=== PATIENT | female | born 1965 | race Caucasian/White ===

== ENCOUNTER 2017-04-13 20:41 | Emergency (ER) | payer MEDICARE, MEDICAID ==
[~2017-04-13] VITALS: Ht 162.6 cm; Wt 65.1 kg
[~2017-04-13 20:41] MED LIST: DEP500A PO; OLAN10TA3 PO
[2017-04-13 20:47] VITALS: PULSE 71; RESP 26; O2SAT 96
--- NOTE | 2017-04-13 21:02 | ED.REPORT ---
HPI-Abd Pain F 40 and Over Date of Service Apr 13, 2017 ED Provider: Dr. Chu 51 y/o female with a hx of anxiety, bipolar disorder, seizure disorder and Hep C presents to the ED from [facility] complaining of abdominal pain for the last week. Associated sx include dysuria, urinary frequency, urinary retention and constipation. The pt reports mild relief from constipation after taking milk of magnesia. She denies abnormal vaginal discharge, fever, and flank pain. She states she has had UTIs "but not like this". The pt initially reports concern about STDs but later states "they did a blood test and said I don't have any STD." The pt appears anxious and is a tangential historian. She states "I have not taken my Klonopin since 2001." She stopped taking olanzapine because it gave her akathisia. She also states "I stopped taking benztropine because it dehydrates me and I feel like I'm choking." She last used meth 2 months ago. Nursing Notes Stated Complaint: ABDOMINAL PAIN Chief Complaint: Female Abdominal Pain Nursing Notes Reviewed: Yes Allergies: Coded Allergies: haloperidol (Verified Allergy, Severe, Extrapyramidal Symptoms, 04/13/17) "Mouth seizure and lockjaw" Scheduled Divalproex DR (Depakote DR) 500 Mg Tabec 500 MG PO BID Swallowed whole without chewing to avoid local irritation of the mouth and throat. Lactulose (Lactulose) 20 Gm/30 Ml Solution 20 GM PO TID Olanzapine (Zyprexa) 10 Mg Tablet 10 MG PO HS Scheduled PRN Clonazepam (Clonazepam) 1 Mg Tablet 1 MG PO HS PRN PRN For Anxiety General Time Seen by MD: 21:02 Chief Complaint Abdominal pain Hx Obtained From: Patient Arrived By: Walk-in Sudden in Onset?: No Onset Occurred: 1 week ago Symptom Duration: Since onset Location: : Abdomen lower Quality: Painful Radiation: : Does not radiate Severity: Current: Moderate Severity: Maximum: Moderate Recent Healthcare: No recent doctor visit Similar Sx Previous: No Past Medical History Past Medical History - Seizure disorder - Hepatitis C - Psychosis unspecified - Bipolar disorder - Anxiety Past Surgical History Reports: Hysterectomy Smoking History Current Every Day Smoker Social History Drug Use: Meth, THC Ambulatory Status Independent Review of Systems Reports: urinary retention Constitutional: Denies: Fever GI: Reports: Abdominal pain, Constipation Female: Reports: Dysuria, Urinary frequency, Denies: Flank pain, Vaginal bleeding - abnl Complete sys rev & neg: except as marked. Physical Exam Vital Signs Vital Signs (First) Date Time Temp Pulse Resp B/P Pulse Ox O2 Delivery O2 Flow Rate FiO2 04/13/17 20:47 36.2 71 26 96 Room Air 04/13/17 21:38 134/83 Initial VS: Reviewed Head / Eyes: Atraumatic, Normocephalic, PERRL ENT: Mucous membranes moist, Conjunctiva normal, No scleral icterus Neck: Supple, Non-tender, Full range of motion Extremities: Vascular intact, Neuro intact, No swelling, No tenderness Skin: Warm, Dry, No cyanosis Neurologic: Alert, Oriented, Nonfocal General/Constitutional: Awake, Alert, Cooperative Behavior: Positive: Anxious The pt was initially constantly moving, tangential and had pressured speech. After Klonopin administration, she had significantly calmed down and was able to converse normally. Respiratory / Chest: Atraumatic, Breath sounds NL, Breath sounds = bilat, No respiratory distress, No rales, No rhonchi, No wheezing Cardiovascular: Heart rate NL, Regular rhythm, Heart sounds NL, No gallop, No murmurs, No rubs Abdomen: Atraumatic, Soft, Non-tender, No guarding, No rebound Back: Atraumatic, Full range of motion Psychiatric: Not suicidal, Not homicidal Manic Interpretation & Diagnostics Lab Results Interpretation Result Diagram: 04/13/17214704/13/[id number] Test 04/13/17 21:37 04/13/17 21:48 Urine Color Straw (YELLOW) Urine Appearance Clear (CLEAR,HAZY) Urine pH 5.5 (5.0-8.0) Urine Specific [place] 1.005 (1.003-1.035) Urine Protein Negativemg/dL (NEG,TRACE) Urine Glucose (UA) Negativemg/dL (NEGATIVE) Urine Ketones Negativemg/dL (NEGATIVE) Urine Occult Blood Negative (NEGATIVE) Urine Nitrite Negative (NEGATIVE) Urine Bilirubin Negative (NEGATIVE) Urine Urobilinogen Normalmg/dL (NORMAL) Urine Leukocyte Esterase Negative (NEGATIVE) Urine RBC 0-2/hpf (0-2) Urine WBC 0-5/hpf (0-5) Urine Epithelial Cells Occasional/hpf (NONE-MOD) Urine Crystals None seen (NONE SEEN) Urine Bacteria None/hpf (NONE-FEW) Urine Hyaline Casts None/lpf (NONE) Urine Granular Casts None seen (NONE SEEN) Urine Waxy Casts None seen (NONE SEEN) Urine Red Blood Cell Casts None seen (NONE SEEN) Urine White Blood Cell Casts None seen (NONE SEEN) Urine Mucus None seen (None Seen) Urine Trichomonas None seen (NONE SEEN) Urine Yeast None (NONE SEEN) Urinalysis Comment None Urine Culture Reflexed Not indicated White Blood Count 6.9th/mm3 (3.8-10.1) Red Blood Count 4.64mil/mm3 (3.90-5.20) Hemoglobin 13.7g/dL (12.0-15.6) Hematocrit 39.5% (35.0-46.0) Mean Corpuscular Volume 85.1fL (81-100) Mean Corpuscular Hemoglobin 29.5pg (27.0-35.0) Mean Corpuscular Hemoglobin Concent 34.7% (32.0-37.0) Red Cell Distribution Width 12.7% (12.3-15.4) Platelet Count 225bil/L (150-400) Neutrophils (%) (Auto) 53.0% (40-74) Lymphocytes (%) (Auto) 35.7% (14-46) Monocytes (%) (Auto) 9.2% (4-12) Eosinophils (%) (Auto) 1.2% (0-5) Basophils (%) (Auto) 0.6% (0-3) Sodium Level 133mEq/L (134-144) Potassium Level 3.8mEq/L (3.5-5.2) Chloride Level 94mEq/L (97-108) Carbon Dioxide Level 22mmol/L (18-29) Blood Urea Nitrogen 12mg/dL (6-24) Creatinine 0.89mg/dL (0.57-1.00) Estimat Glomerular Filtration Rate 96mL/min (>59) Glucose Level 94mg/dL (60-99) Calcium Level 10.1mg/dL (8.5-10.1) Total Bilirubin 0.3mg/dL (0.0-1.2) Aspartate Amino Transf (AST/SGOT) 18U/L (0-50) Alanine Aminotransferase (ALT/SGPT) 17U/L (0-32) Alkaline Phosphatase 49U/L (25-150) Total Protein 7.7g/dL (6.4-8.4) Albumin 4.3g/dL (3.4-5.0) Lipase 25U/L (13-60) CT Abd / Pelvis Interpretation Conclusion: Moderate to large amount of colonic stool. Signed by Dr. Trista Michel 04/13/17 23:13 Interpretation / Wet Read by: Interpret - Radiologist Re-Eval/Medical Decision Med Decision/Clinical Course 51-year-old with abdominal discomfort sent from [place] for evaluation. Her abdominal evaluation is pacing negative except for severe constipation. She is initially very anxious and hyperkinetic, but improved dramatically with Klonopin, and is now able converse normally aligned the bed. Her exam remains benign. CT just shows constipation. Begun with lactulose to clear out. Klonopin and at bedtime, ten total written and no renewal. Follow up with PCP. She requested and we declined to alter her psych medicines at present except for the application of Klonopin temporarily. Discharged in stable and improved condition. Source of Hx: Old records Re-Evaluation/Progress #1: Time of Eval: 01:25 Re-Evaluation/Progress Note: Rechecked pt. Discussed lab results, imaging results, diagnosis and plan to discharge. Pt understands and agrees with the plan. F/U instruction and RTER warning given. All questions addressed. Re-Evaluation/Progress #2: Time of Eval: 01:32 Re-Evaluation/Progress Note: [facility]. They have a bed for the pt. Counseled Regarding: Diagnosis, Lab results, Need for follow-up, When/why to return to ED Discharge & Departure Primary Impression: Abdominal Pain Generalized Additional Impressions: Anxiety Constipation Constipation type: unspecified constipation type Qualified Code: K59.00 - Constipation, unspecified Bipolar affective disorder Active/Remission status: remission status unspecified Qualified Code: F31.9 - Bipolar disorder, unspecified Disposition: Home Discharge Condition All VS Reviewed: Yes Patient Instructions: Constipation (ED), Generalized Anxiety Disorder (ED) Additional Instructions: Continue your current medications. We will add clonazepam at night to reduce your anxiety and your extrapyramidal movements. Contact your doctor to make any changes in her basic regimen. As you see, all of your extra movements have resolved with the clonazepam, suggesting they were more related to anxiety than to medicine side effects. Began lactulose 1 tablespoon three times daily until you have at least three bowel movements a day for two days. You can then stop the lactulose. Return here for any immediate issues. Referrals: Vidhi Bravo MD (Family) Scribe Attestation Portions of this note were transcribed by Robert Keys. I,, personally performed the history, physical exam and medical decision-making;I reviewed and confirmed the accuracy of the information in the transcribed note. Signed by Donovan Etienne. 04/13/17 21:48 copies to: Vidhi Bravo MD, Christopher W MD Apr 13, 2017 21:02 Robert Keys Apr 13, 2017 21:20
[2017-04-13] MEDS ORDERED: Iohexol 300 mg/mL 30 mL Inj PO ONE (21:20)
[2017-04-13 21:38] VITALS: BP 134/83
[2017-04-13 21:52] LABS: BASOPHILS % (AUTO) 0.6 % (0-3); EOSINOPHILS % (AUTO) 1.2 % (0-5); MONOCYTES % (AUTO) 9.2 % (4-12); Mean Corpuscular Hemoglobin 29.5 pg (27.0-35.0); Mean Corpuscular Volume 85.1 fL (81-100); Platelet Count 225 bil/L (150-400)
[2017-04-13 21:53] LABS: APPEARANCE,URINE CLEAR (CLEAR,HAZY); COLOR,URINE STRAW (YELLOW); OCCULT BLOOD,URINE NEGATIVE (NEGATIVE); PH,URINE 5.5 (5.0-8.0); UROBILINOGEN,URINE NORMAL (NORMAL)
[2017-04-14 00:30] VITALS: BP 104/86; PULSE 61; RESP 12; O2SAT 98
[2017-04-14] MEDS ORDERED: Lactulose 20 Gm/30 mL 30 mL Syrup PO ONE (01:35)
[2017-04-14] MEDS ORDERED: LACT10SO60 PO (01:39)
[2017-04-14] MEDS ORDERED: KLO1T PO (01:39)
[2017-04-14 01:40] VITALS: BP 111/65; PULSE 68; RESP 18; O2SAT 98
--- NOTE | 2017-04-14 08:07 | DRSVH ---
PROCEDURE: CT ABDOMEN AND PELVIS WITH CONTRAST ([id number]) INDICATIONS: lower abdo pain TECHNIQUE: After the administration of intravenous contrast, 5 mm thick sections acquired from the diaphragm to the symphysis. 5 mm coronal and sagittal reformats were acquired. For radiation dose reduction, the following was used: automated exposure control, adjustment of mA and/or kV according to patient siz e. COMPARISON: None. FINDINGS: Image quality: Excellent. ABDOMEN: Lung bases: Lung bases are clear. Heart size is normal. Solid organs: Liver and spleen are normal in size and enhancement. Gallbladder is normal. Biliary system is non dilated. Pancreas enhances normally. No adrenal nodules. Kidneys demonstrate normal size and enhancement, without hydronephrosis. Peritoneum and bowel: There is a large amount of stool in colon. Bowel loops demonstrate normal wall thickness and caliber. Appendix is normal. No free fluid or air. Nodes and vessels: No retroperitoneal or mesenteric adenopathy by size criteria. Aorta and inferior vena cava are normal in size. Miscellaneous: No ventral hernias. PELVIS: Genitourinary: Bladder wall thickness is normal. Miscellaneous: No inguinal hernias or adenopathy. Bones: No suspicious bony lesions. No vertebral body compression fractures. IMPRESSION: 1. A large amount of stool in colon. Otherwise no acute intra-abdominal/pelvic process. No significant discrepancy with the maintenance supervisor 2nd shift radiology preliminary report. Dictated by: Emilee Buchanan M.D. on 04/14/2017 at 8:03 Approved by: Emilee Buchanan M.D. on 04/14/2017 at 8:05
== END 2017-04-14 01:50 | disposition home or self-care (01) ==
LOC: SED 20:41
DX: K59.00 Constipation, unspecified (principal); F31.9 Bipolar disorder, unspecified; F41.9 Anxiety disorder, unspecified; R10.84 Generalized abdominal pain; F17.200 Nicotine dependence, unspecified, uncomplicated
CPT/HCPCS: 36415; 74177; 80053; 81000; 83690; 85025; 96374; 99285; J1885; Q9967